=== PATIENT | male | born 1970 | race Caucasian/White ===

== ENCOUNTER 2016-08-20 02:47 | Emergency (ER) | payer MEDICAID ==
[~2016-08-20] VITALS: Ht 188 cm; Wt 111.9 kg
[~2016-08-20 02:47] MED LIST: AMOX125S10 PO; DIAZ2TAB3 PO; FLUT16SP2 NS; HYDR-3240 PO; TOPI25CA5 PO
[2016-08-20] MEDS ORDERED: ONDANSETRON ODT 4 MG ONE (03:29)
[2016-08-20] MEDS ORDERED: OXYcodone/APAP 5/325MG TABLET ONE (03:29)
[2016-08-20] MEDS ORDERED: LIDOCAINE 1%, 20ML ONE (03:29)
[2016-08-20] MEDS ORDERED: OXYcodone/APAP 5/325MG TABLET PO ONE (03:30)
[2016-08-20] MEDS ORDERED: ONDANSETRON ODT 4 MG PO ONE (03:30)
[2016-08-20] MEDS ORDERED: LIDOCAINE 1%, 20ML INFIL ONE (03:30)
[2016-08-20 04:35] VITALS: BP 144/88
== END 2016-08-20 04:37 | disposition home or self-care (01) ==
LOC: ED 03:12
DX: S30.860A Insect bite (nonvenomous) of lower back and pelvis, initial encounter (principal); L03.317 Cellulitis of buttock; W57.XXXA Bitten or stung by nonvenomous insect and other nonvenomous arthropods, initial encounter; Y93.89 Activity, other specified; Y99.8 Other external cause status; Y92.89 Other specified places as the place of occurrence of the external cause
CPT/HCPCS: 10060; 99283; Q0162

== ENCOUNTER 2016-12-24 23:13 | Emergency (ER) | payer MEDICAID ==
[~2016-12-24] VITALS: Ht 188 cm; Wt 107.5 kg
[2016-12-24] MEDS ORDERED: SODIUM CHLORIDE 0.9% 1,000 ML IV ONE (23:57)
[2016-12-25] MEDS ORDERED: LORazepam 2 MG/ML, 1ML IVPush ONE
[2016-12-25] MEDS ORDERED: SODIUM CHLORIDE FLUSH 10ML SYR IVF ONE
[2016-12-25] MEDS ORDERED: LORazepam 2 MG/ML, 1ML ONE (00:05)
[2016-12-25 00:16] LABS: HEMATOCRIT 51.7 % (39.2-51.8); WHITE BLOOD COUNT 11.1 x10^3/uL (3.4-10)
[2016-12-25 00:19] LABS: BLOOD UREA NITROGEN 21 mg/dL (7-18)
[2016-12-25 00:26] LABS: IS PT STATUS REG ER OR PRE ER? YES
[2016-12-25 01:18] VITALS: BP 112/67
== END 2016-12-25 01:30 | disposition home or self-care (01) ==
LOC: ED 23:45
DX: S29.012A Strain of muscle and tendon of back wall of thorax, initial encounter (principal); R07.2 Precordial pain; X58.XXXA Exposure to other specified factors, initial encounter; Y93.89 Activity, other specified; Y99.8 Other external cause status; Y92.89 Other specified places as the place of occurrence of the external cause
CPT/HCPCS: 36415; 71020; 80048; 82040; 84484; 85025; 85379; 93005; 96361; 96374; 99285; J2060; J7030

== ENCOUNTER 2016-12-28 22:31 | Emergency (ER) | payer MEDICAID ==
[~2016-12-28] VITALS: Ht 188 cm; Wt 109.2 kg
[2016-12-28] MEDS ORDERED: ALBUTEROL/IPRATROPIUM 2.5MG/0.5MG, 3 ML NPPB ONE (23:00)
[2016-12-28] MEDS ORDERED: ALBUTEROL/IPRATROPIUM 2.5MG/0.5MG, 3 ML ONE (23:08)
[2016-12-29] MEDS ORDERED: LORazepam 1MG TABLET PO ONE
[2016-12-29] MEDS ORDERED: LORazepam 1MG TABLET ONE (00:23)
[2016-12-29 00:27] VITALS: BP 115/69
== END 2016-12-29 00:36 | disposition home or self-care (01) ==
LOC: ED 23:59
DX: J44.1 Chronic obstructive pulmonary disease with (acute) exacerbation (principal); F17.200 Nicotine dependence, unspecified, uncomplicated
CPT/HCPCS: 71020; 94640; 99284; J7512; J7620

== ENCOUNTER 2017-01-20 18:12 | Emergency (ER) | payer MEDICAID ==
[~2017-01-20] VITALS: Ht 188 cm; Wt 112.2 kg
[2017-01-20] MEDS ORDERED: LIDOCAINE 1%, 20ML SQ ONE (18:30)
[2017-01-20 19:46] VITALS: BP 131/84
== END 2017-01-20 19:50 | disposition home or self-care (01) ==
LOC: ED 19:30
DX: L03.113 Cellulitis of right upper limb (principal); L02.411 Cutaneous abscess of right axilla; J44.9 Chronic obstructive pulmonary disease, unspecified
CPT/HCPCS: 10060

== ENCOUNTER 2019-05-07 21:58 | Emergency (ER) | payer MEDICAID, OTHER ==
[~2019-05-07] VITALS: Ht 188 cm; Wt 133.2 kg
[2019-05-07] MEDS ORDERED: ASPIRIN 81 MG TABLET CHEW ONE (22:17)
--- NOTE | 2019-05-07 22:18 | NUR ---
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
[2019-05-07] MEDS ORDERED: ASPIRIN 81 MG TABLET CHEW PO ONE (22:30)
[2019-05-07] MEDS ORDERED: SODIUM CHLORIDE FLUSH 10ML SYR IVF ONE (22:30)
--- NOTE | 2019-05-07 23:08 | NUR ---
pt to room from lobby
[2019-05-07] MEDS ORDERED: methylPREDNISolone SOD SUCC 125 MG/2 ML IVPush STA (23:18)
[2019-05-07 23:29] LABS: BASOPHILS # (AUTO) 0.01 x10^3/uL (0-0.1); BASOPHILS % (AUTO) 0 % (0-1); EOSINOPHILS # (AUTO) 0.16 x10^3/uL (0-0.4); EOSINOPHILS % (AUTO) 2 % (1-7); LYMPHOCYTES # (AUTO) 2.34 x10^3/uL (1-3.4); LYMPHOCYTES % (AUTO) 29 % (22-44); MD NO; MEAN CORPUSCULAR HEMOGLOBIN 29.4 pg (27.5-34.5); MEAN CORPUSCULAR HGB CONC 32.5 g/dL (33.2-36.2); MEAN CORPUSCULAR VOLUME 90.5 fL (81-97); MEAN PLATELET VOLUME 7.4 fL (7.4-10.4); MONOCYTES # (AUTO) 0.87 x10^3/uL (0.2-0.8); MONOCYTES % (AUTO) 11 % (2-9); NEUTROPHILS # (AUTO) 4.57 x10^3/uL (1.8-6.8); NEUTROPHILS % (AUTO) 58 % (42-75); PLATELET COUNT 207 x10^3/uL (130-400)
[2019-05-07] MEDS: ALBUTEROL/IPRATROPIUM 2.5MG/0.5MG, 3 ML NPPB SCH ×2 (23:40→23:43)
[2019-05-07] MEDS ORDERED: methylPREDNISolone SOD SUCC 125 MG/2 ML ONE (23:40)
[2019-05-07 23:41] LABS: ALBUMIN 3.2 g/dL (3.4-5.0); ANION GAP 4 mmol/L (5-15); CALCIUM 8.9 mg/dL (8.5-10.1); CHLORIDE 111 mmol/L (98-107)
--- NOTE | 2019-05-07 23:41 | NUR ---
CTA PENDING CREATINE.
[2019-05-07 23:46] LABS: ALANINE AMINOTRANSFERASE 44 U/L (12-78); ALKALINE PHOSPHATASE 107 U/L (45-117); BILIRUBIN,TOTAL 0.5 mg/dL (0.2-1.0); CREATININE 1.14 mg/dL (0.7-1.3); TOTAL PROTEIN 7.6 g/dL (6.4-8.2); TROPONIN I < 0.015 ng/mL (0.000-0.045)
--- NOTE | 2019-05-08 00:10 | NUR ---
PATIENT TO CT SCAN.
--- NOTE | 2019-05-08 00:34 | NUR ---
RT FOREARM IV FAILED, STARTED 20G IN LEFT PROXIMAL FOREARM. SENT PT BACK TO ER WITH IV.
[2019-05-08] MEDS ORDERED: OMNIPAQUE 350 MG/ML, 100ML BOTTLE ONE (00:36)
--- NOTE | 2019-05-08 00:38 | NUR ---
BACK FROM CT SCAN. AWAITING RESULT. NON STOP COUGH NOTED.
--- NOTE | 2019-05-08 01:00 | NUR ---
ERP AT BEDSIDE FOR RE-EVALUATION.
[2019-05-08 01:34] VITALS: BP 145/89
== END 2019-05-08 01:35 | disposition home or self-care (01) ==
LOC: ED 05-08 01:19
DX: J44.0 Chronic obstructive pulmonary disease with (acute) lower respiratory infection (principal); J20.9 Acute bronchitis, unspecified; F17.210 Nicotine dependence, cigarettes, uncomplicated
CPT/HCPCS: 36415; 71275; 80053; 83880; 84484; 85025; 93005; 94640; 96374; 99284; J2930; J7620; Q9967

== ENCOUNTER 2020-07-05 06:32 | Emergency (ER) | payer MEDICAID, OTHER ==
[~2020-07-05] VITALS: Ht 185.4 cm; Wt 118.2 kg
[~2020-07-05 06:32] MED LIST changes: +HYDR-1067 PO; -HYDR-3240 PO
[2020-07-05 06:38] VITALS: BP 158/101
[2020-07-05] MEDS ORDERED: ALBUTEROL SULFATE 2.5 MG/3 ML ONE (06:56)
[2020-07-05] MEDS ORDERED: ALBUTEROL SULFATE 2.5 MG/3 ML NPPB ONE (07:00)
--- NOTE | 2020-07-05 07:04 | NUR ---
PT HAS CO COUGH FROM SMOKING AND CONGESTION. PT NOT IN RESP DISTRESS. XR COMPLETE, BREATHING TREATMENT IN PROCESS.
--- NOTE | 2020-07-05 07:27 | NUR ---
Patient given discharge instructions and they have confirmed that they understand the instructions. Patient ambulatory with steady gait.
== END 2020-07-05 07:28 | disposition home or self-care (01) ==
LOC: ED 07:20
DX: J20.9 Acute bronchitis, unspecified (principal); R00.0 Tachycardia, unspecified; F17.200 Nicotine dependence, unspecified, uncomplicated; Z86.711 Personal history of pulmonary embolism
CPT/HCPCS: 71045; 93005; 94640; 99283; J7613

== ENCOUNTER 2020-07-16 10:25 | Inpatient (IN) | payer OTHER ==
[~2020-07-16] VITALS: Ht 188 cm; Wt 114.2 kg
--- NOTE | 2020-07-16 10:25 | NUR ---
INITIAL PT CONTACT. PT PRESENTS TO ED VIA EMS C/O WORSENING SOB AND COUGH, X3 WEEKS. RECENT DX OF BRONCHITIS, RX PREDISONE "I AM TAKING IT HOW I AM SUPPOSED TO" . PT ALSO C/O INCREASED "SWELLING OF MY FEET AND ANKLES AND HARD TIME BREATHING WHEN I AM SLEEPING OR TRYING TO SLEEP". 1 INCH NITRO PASTE GIVEN EN ROUTE WITH EMS. PER EMS PT WAS 88% ON ROOM AIR, PLACED ON 4L O2 VIA NASAL CANNULA, PT NOW 99%. PT DENIES ANY CHEST PAIN, N/V. PT SITTING UPRIGHT ON GURNEY, VSS. PT PLACED ON CONTINUOUS PULSE OX AND CARDIAC MONITORING. CALL LIGHT AND PERSONAL BELONGINGS WITHIN REACH. AWAITING ERP.
--- NOTE | 2020-07-16 10:42 | NUR ---
ERP AT BEDSIDE
[2020-07-16] MEDS ORDERED: ASPIRIN 81 MG TABLET CHEW ONE (11:10)
[2020-07-16] MEDS ORDERED: SODIUM CHLORIDE FLUSH 10ML SYR IVF ONE (11:30)
[2020-07-16] MEDS ORDERED: ASPIRIN 81 MG TABLET CHEW PO ONE (11:30)
[2020-07-16 11:33] LABS: ALBUMIN 3.3 g/dL (3.4-5.0); ANION GAP 7 mmol/L (5-15); CALCIUM 8.8 mg/dL (8.5-10.1); CHLORIDE 107 mmol/L (98-107); CREATININE 0.87 mg/dL (0.7-1.3)
[2020-07-16 11:37] LABS: TROPONIN I 0.028 ng/mL (0.000-0.045)
[2020-07-16 11:45] LABS: BASOPHILS % (AUTO) 1 % (0-1); EOSINOPHILS % (AUTO) 1 % (1-7); LYMPHOCYTES % (AUTO) 22 % (22-44); MEAN PLATELET VOLUME 8.7 fL (7.4-10.4); MONOCYTES % (AUTO) 7 % (2-9); NEUTROPHILS % (AUTO) 70 % (42-75); PLATELET COUNT 148 x10^3/uL (130-400); RED BLOOD COUNT 5.66 x10^6/uL (4.38-5.82); RED CELL DISTRIBUTION WIDTH 14.2 % (9.4-14.8)
[2020-07-16 11:50] LABS: MD NO
[2020-07-16] MEDS ORDERED: OMNIPAQUE 350 MG/ML, 100ML BOTTLE ONE (12:09)
[2020-07-16] MEDS ORDERED: ALBUTEROL/IPRATROPIUM 2.5MG/0.5MG, 3 ML ONE (13:12)
--- NOTE | 2020-07-16 13:20 | NUR ---
PT STATES "I FEEL A LITTLE BETTER AFTER THAT BREATHING TX, MADE ME BE ABLE TO TAKE A DEEPER BREATH" PT DENIES ANY ADDITIONAL NEEDS AT THIS TIME.
--- NOTE | 2020-07-16 13:27 | NUR ---
PT PROVIDED LUNCH TRAY. OK PER ERP. PT DENIES ANY ADDITIONAL NEEDS AT THIS TIME. CALL LIGHT AND BELONGINGS WITHIN REACH.
[2020-07-16] MEDS ORDERED: ALBUTEROL/IPRATROPIUM 2.5MG/0.5MG, 3 ML NPPB ONE (13:30)
--- NOTE | 2020-07-16 13:46 | NUR ---
REPORT TO TINA THURMAN
[2020-07-16] MEDS ORDERED: PROMETHAZINE/COD. 10MG/6.25MG/5 ML ORAL SOL PO PRN (14:00)
[2020-07-16] MEDS ORDERED: ONDANSETRON ODT 4 MG PO PRN (14:00)
[2020-07-16] MEDS: ENOXAPARIN 40 MG/0.4 ML SQ SCH (15:38)
[2020-07-16 15:44] VITALS: BP 141/97
[2020-07-16] MEDS: AMPICILLIN/SULBACTAM 3 GM in SODIUM CHLORIDE 0.9% 100 ML IV SCH ×2 (17:12→23:07)
[2020-07-16] MEDS: BENZONATATE 100 MG CAPSULE PO SCH ×2 (17:12→20:52)
[2020-07-16 17:23] VITALS: BP 141/97
[2020-07-16] MEDS: NICOTINE 21 MG/24 HR PATCH.TD24 TD SCH (18:28)
[2020-07-16] MEDS: ACETAMINOPHEN 325 MG TABLET PO PRN (18:28)
[2020-07-16 18:34] VITALS: BP 126/87
[2020-07-16 18:41] LABS: TROPONIN I 0.025 ng/mL (0.000-0.045)
[2020-07-16] MEDS: GUAIFENESIN ER 600 MG TABLET PO SCH (20:52)
[2020-07-16] MEDS: DOXYCYCLINE 100MG TABLET PO SCH (20:53)
[2020-07-17 00:54] VITALS: BP 119/83
[2020-07-17 01:27] LABS: TROPONIN I 0.018 ng/mL (0.000-0.045)
[2020-07-17] MEDS: KETOROLAC 30 MG/1 ML IV PRN ×2 (03:13→03:14)
[2020-07-17] MEDS: AMPICILLIN/SULBACTAM 3 GM in SODIUM CHLORIDE 0.9% 100 ML IV SCH ×4 (05:10→23:36)
[2020-07-17] MEDS: DOXYCYCLINE 100MG TABLET PO SCH ×2 (07:48→20:16)
[2020-07-17] MEDS: BENZONATATE 100 MG CAPSULE PO SCH ×3 (07:49→20:17)
[2020-07-17] MEDS: GUAIFENESIN ER 600 MG TABLET PO SCH ×2 (07:49→20:17)
[2020-07-17 07:56] VITALS: BP 131/93
[2020-07-17] MEDS ORDERED: NICOTINE 21 MG/24 HR PATCH.TD24 TD SCH (09:00)
[2020-07-17 13:21] VITALS: BP 139/101
[2020-07-17] MEDS: ENOXAPARIN 40 MG/0.4 ML SQ SCH (13:59)
[2020-07-17] MEDS: ACETAMINOPHEN 325 MG TABLET PO PRN (13:59)
[2020-07-17] MEDS ORDERED: SODIUM CHLORIDE 0.9% 1,000 ML IV ONE (16:00)
[2020-07-17] MEDS: NICOTINE 21 MG/24 HR PATCH.TD24 TD SCH (17:59)
[2020-07-17] MEDS ORDERED: FUROSEMIDE 40 MG/4 ML IV ONE (18:00)
[2020-07-17 20:08] VITALS: BP 140/97
[2020-07-17] MEDS: ZOLPIDEM 5MG TABLET PO PRN (20:17)
[2020-07-18 00:39] VITALS: BP 143/99
[2020-07-18] MEDS: KETOROLAC 30 MG/1 ML IV PRN ×2 (02:01→09:58)
[2020-07-18] MEDS: AMPICILLIN/SULBACTAM 3 GM in SODIUM CHLORIDE 0.9% 100 ML IV SCH ×2 (04:27→11:12)
[2020-07-18 08:16] VITALS: BP 147/120
[2020-07-18 08:21] VITALS: BP 140/111
[2020-07-18] MEDS ORDERED: MELATONIN 3 MG TABLET PO PRN (08:30)
[2020-07-18] MEDS ORDERED: CARVEDILOL 3.125 MG TABLET PO SCH (08:30)
[2020-07-18] MEDS ORDERED: LISINOPRIL 10 MG TABLET PO SCH (09:00)
[2020-07-18 09:48] LABS: ANION GAP 4 mmol/L (5-15); CALCIUM 9.2 mg/dL (8.5-10.1); CHLORIDE 105 mmol/L (98-107); CREATININE 0.79 mg/dL (0.7-1.3)
[2020-07-18] MEDS: GUAIFENESIN ER 600 MG TABLET PO SCH ×2 (09:57→20:09)
[2020-07-18] MEDS: CARVEDILOL 3.125 MG TABLET PO SCH ×3 (09:58→20:09)
[2020-07-18] MEDS: FUROSEMIDE 20 MG/2 ML IV SCH ×2 (09:58→17:01)
[2020-07-18] MEDS: BENZONATATE 100 MG CAPSULE PO SCH ×3 (09:58→20:09)
[2020-07-18] MEDS: DOXYCYCLINE 100MG TABLET PO SCH (09:58)
[2020-07-18] MEDS: SPIRONOLACTONE 25 MG TABLET PO SCH (09:59)
[2020-07-18] MEDS: LISINOPRIL 10 MG TABLET PO SCH ×2 (09:59→20:08)
[2020-07-18] MEDS: NICOTINE 21 MG/24 HR PATCH.TD24 TD SCH (10:00)
[2020-07-18] MEDS ORDERED: MIDAZOLAM 1 MG/ML, 5ML ONE (12:48)
[2020-07-18] MEDS ORDERED: TICAGRELOR 90 MG TABLET ONE (12:48)
[2020-07-18] MEDS ORDERED: FENTANYL PF 100 MCG/2ML ONE (12:48)
[2020-07-18] MEDS ORDERED: VERAPAMIL 2.5 MG/ML, 2ML ONE (12:48)
[2020-07-18] MEDS ORDERED: LIDOCAINE 2%, 20ML ONE (12:49)
[2020-07-18] MEDS ORDERED: BIVALIRUDIN 250 MG ONE ×2 (12:49→14:05)
[2020-07-18] MEDS ORDERED: HEPARIN 1,000 UNITS/ML, 10ML ONE (12:49)
[2020-07-18 14:00] VITALS: BP 132/88
[2020-07-18] MEDS ORDERED: ASPIRIN 325 MG TABLET EC ONE (14:12)
[2020-07-18] MEDS ORDERED: BIVALIRUDIN 250 MG in SODIUM CHLORIDE 0.9% 50 ML IV SCH (14:30)
[2020-07-18] MEDS: SODIUM CHLORIDE 0.9% 1,000 ML IV SCH ×2 (14:30→22:30)
[2020-07-18] MEDS: ASPIRIN 81 MG TABLET CHEW PO SCH (17:01)
[2020-07-18] MEDS: ATORVASTATIN 80 MG TABLET PO SCH (20:09)
[2020-07-18] MEDS: ZOLPIDEM 5MG TABLET PO PRN (20:09)
[2020-07-18 20:52] VITALS: BP 112/75
[2020-07-18] MEDS ORDERED: TICAGRELOR 90 MG TABLET PO SCH (21:00)
[2020-07-19 01:12] VITALS: BP 134/98
[2020-07-19] MEDS ORDERED: LORazepam 2 MG/ML, 1ML ONE (02:45)
[2020-07-19] MEDS ORDERED: LORazepam 2 MG/ML, 1ML IVPush ONE (03:00)
[2020-07-19 05:10] LABS: BASOPHILS % (AUTO) 1 % (0-1); EOSINOPHILS % (AUTO) 1 % (1-7); LYMPHOCYTES % (AUTO) 15 % (22-44); MEAN CORPUSCULAR HEMOGLOBIN 30.7 pg (27.5-34.5); MEAN CORPUSCULAR HGB CONC 33.8 g/dL (33.2-36.2); MONOCYTES % (AUTO) 5 % (2-9); NEUTROPHILS % (AUTO) 78 % (42-75); PLATELET COUNT 167 x10^3/uL (130-400); RED BLOOD COUNT 5.61 x10^6/uL (4.38-5.82); RED CELL DISTRIBUTION WIDTH 14.4 % (9.4-14.8)
[2020-07-19 05:12] LABS: MD NO
[2020-07-19 05:22] LABS: ANION GAP 4 mmol/L (5-15); CALCIUM 8.5 mg/dL (8.5-10.1); CHLORIDE 104 mmol/L (98-107)
[2020-07-19 05:23] LABS: CREATININE 0.92 mg/dL (0.7-1.3)
[2020-07-19] MEDS: CARVEDILOL 3.125 MG TABLET PO SCH (06:09)
[2020-07-19] MEDS: ASPIRIN 81 MG TABLET CHEW PO SCH (06:09)
[2020-07-19] MEDS: SODIUM CHLORIDE 0.9% 1,000 ML IV SCH (06:14)
[2020-07-19 06:51] VITALS: BP 127/92
[2020-07-19 08:57] VITALS: BP 142/102
[2020-07-19] MEDS: CLOPIDOGREL 75 MG TABLET PO SCH (09:00)
[2020-07-19] MEDS: SPIRONOLACTONE 25 MG TABLET PO SCH (09:00)
[2020-07-19] MEDS: GUAIFENESIN ER 600 MG TABLET PO SCH ×2 (09:01→20:45)
[2020-07-19] MEDS: BENZONATATE 100 MG CAPSULE PO SCH ×3 (09:01→20:45)
[2020-07-19] MEDS: LISINOPRIL 10 MG TABLET PO SCH ×2 (09:01→20:45)
[2020-07-19] MEDS: FUROSEMIDE 20 MG/2 ML IV SCH ×2 (09:01→17:12)
[2020-07-19] MEDS: NICOTINE 21 MG/24 HR PATCH.TD24 TD SCH (09:02)
[2020-07-19] MEDS: CARVEDILOL 12.5 MG TABLET PO SCH ×2 (09:30→20:46)
[2020-07-19 12:46] VITALS: BP 134/101
[2020-07-19 17:09] VITALS: BP 129/79
[2020-07-19 20:00] VITALS: BP 123/85
[2020-07-19] MEDS: ATORVASTATIN 80 MG TABLET PO SCH (20:45)
[2020-07-20 00:50] VITALS: BP 109/73
[2020-07-20 04:49] LABS: BASOPHILS % (AUTO) 0 % (0-1); EOSINOPHILS % (AUTO) 1 % (1-7); LYMPHOCYTES % (AUTO) 16 % (22-44); MEAN CORPUSCULAR HEMOGLOBIN 30.8 pg (27.5-34.5); MEAN PLATELET VOLUME 9.2 fL (7.4-10.4); MONOCYTES % (AUTO) 6 % (2-9); NEUTROPHILS % (AUTO) 77 % (42-75); PLATELET COUNT 170 x10^3/uL (130-400); RED BLOOD COUNT 5.94 x10^6/uL (4.38-5.82); RED CELL DISTRIBUTION WIDTH 14.3 % (9.4-14.8)
[2020-07-20 04:53] LABS: MD NO
[2020-07-20 04:56] LABS: ANION GAP 5 mmol/L (5-15); CALCIUM 8.5 mg/dL (8.5-10.1); CHLORIDE 104 mmol/L (98-107)
[2020-07-20] MEDS: ASPIRIN 81 MG TABLET CHEW PO SCH (06:08)
[2020-07-20 07:39] VITALS: BP 127/90
[2020-07-20] MEDS: FUROSEMIDE 20 MG/2 ML IV SCH (07:47)
[2020-07-20] MEDS: BENZONATATE 100 MG CAPSULE PO SCH ×3 (07:48→20:50)
[2020-07-20] MEDS: CLOPIDOGREL 75 MG TABLET PO SCH (07:48)
[2020-07-20] MEDS: GUAIFENESIN ER 600 MG TABLET PO SCH (07:48)
[2020-07-20] MEDS: SPIRONOLACTONE 25 MG TABLET PO SCH (07:48)
[2020-07-20] MEDS: CARVEDILOL 12.5 MG TABLET PO SCH ×2 (07:49→20:50)
[2020-07-20] MEDS: NICOTINE 21 MG/24 HR PATCH.TD24 TD SCH (07:51)
[2020-07-20] MEDS: LISINOPRIL 10 MG TABLET PO SCH ×2 (07:51→20:51)
[2020-07-20] MEDS ORDERED: ISOSORBIDE DINITRATE 10 MG TABLET PO SCH (09:30)
[2020-07-20 13:30] VITALS: BP 113/77
[2020-07-20] MEDS: ISOSORBIDE MONONITRATE ER 30 MG TABLET PO SCH (13:35)
[2020-07-20] MEDS: FUROSEMIDE 40 MG TABLET PO SCH (16:22)
[2020-07-20 18:53] VITALS: BP 117/74
[2020-07-20] MEDS: ATORVASTATIN 80 MG TABLET PO SCH (20:51)
[2020-07-20] MEDS: ZOLPIDEM 5MG TABLET PO PRN (20:58)
[2020-07-21 01:36] VITALS: BP 94/59
[2020-07-21 04:45] LABS: BASOPHILS % (AUTO) 1 % (0-1); EOSINOPHILS % (AUTO) 1 % (1-7); LYMPHOCYTES % (AUTO) 27 % (22-44); MEAN CORPUSCULAR HEMOGLOBIN 30.7 pg (27.5-34.5); MEAN CORPUSCULAR HGB CONC 33.4 g/dL (33.2-36.2); MEAN PLATELET VOLUME 8.5 fL (7.4-10.4); MONOCYTES % (AUTO) 8 % (2-9); NEUTROPHILS % (AUTO) 63 % (42-75); PLATELET COUNT 162 x10^3/uL (130-400); RED BLOOD COUNT 6.14 x10^6/uL (4.38-5.82); RED CELL DISTRIBUTION WIDTH 14.5 % (9.4-14.8)
[2020-07-21 04:54] LABS: MD NO
[2020-07-21 04:58] LABS: ANION GAP 5 mmol/L (5-15); CALCIUM 8.8 mg/dL (8.5-10.1); CHLORIDE 104 mmol/L (98-107); CREATININE 1.02 mg/dL (0.7-1.3)
[2020-07-21] MEDS: ASPIRIN 81 MG TABLET CHEW PO SCH (05:08)
[2020-07-21 06:50] VITALS: BP 114/76
[2020-07-21] MEDS: LISINOPRIL 10 MG TABLET PO SCH (07:22)
[2020-07-21] MEDS: CLOPIDOGREL 75 MG TABLET PO SCH (07:22)
[2020-07-21] MEDS: CARVEDILOL 12.5 MG TABLET PO SCH (07:23)
[2020-07-21] MEDS: SPIRONOLACTONE 25 MG TABLET PO SCH (07:23)
[2020-07-21] MEDS: FUROSEMIDE 40 MG TABLET PO SCH (07:23)
[2020-07-21] MEDS: ISOSORBIDE MONONITRATE ER 30 MG TABLET PO SCH (07:23)
[2020-07-21] MEDS: BENZONATATE 100 MG CAPSULE PO SCH (07:23)
[2020-07-21] MEDS: NICOTINE 21 MG/24 HR PATCH.TD24 TD SCH (07:24)
[2020-07-21] MEDS ORDERED: ASPI-963 PO (10:40)
[2020-07-21] MEDS ORDERED: FURO40TA6 PO (10:40)
[2020-07-21] MEDS ORDERED: CARV12.52 PO (10:40)
[2020-07-21] MEDS ORDERED: SPIR25TA PO (10:40)
[2020-07-21] MEDS ORDERED: HYDR-826 PO (10:40)
[2020-07-21] MEDS ORDERED: NICO-587 TD (10:40)
[2020-07-21] MEDS ORDERED: ISOS30TA8 PO (10:40)
[2020-07-21] MEDS ORDERED: ATOR-2 PO (10:40)
[2020-07-21] MEDS ORDERED: LISI-170 PO (10:40)
[2020-07-21] MEDS ORDERED: CLOP75TA PO (10:40)
== END 2020-07-21 13:30 | disposition home or self-care (01) | DRG 246 ==
LOC: ED 10:49 → EDIP 13:05 → SUATTDRO 13:29 → 4EST 14:55 → 5SO 07-18 14:17 → DCLOUNGE 07-21 13:19
PROVIDERS: ADMIT Internal Medicine; ATTEND Family Medicine
PROC: 027034Z Dilation of Coronary Artery, One Artery with Drug-eluting Intraluminal Device, Percutaneous Approach (ICD-10-PCS; principal; 2020-07-18)
PROC: 4A023N7 Measurement of Cardiac Sampling and Pressure, Left Heart, Percutaneous Approach (ICD-10-PCS; 2020-07-18)
PROC: B2111ZZ Fluoroscopy of Multiple Coronary Arteries using Low Osmolar Contrast (ICD-10-PCS; 2020-07-18)
PROC: B2151ZZ Fluoroscopy of Left Heart using Low Osmolar Contrast (ICD-10-PCS; 2020-07-18)
DX: I24.9 Acute ischemic heart disease, unspecified (principal); J96.01 Acute respiratory failure with hypoxia; I50.23 Acute on chronic systolic (congestive) heart failure; I42.0 Dilated cardiomyopathy; I11.0 Hypertensive heart disease with heart failure; Z20.822 Contact with and (suspected) exposure to COVID-19; F17.210 Nicotine dependence, cigarettes, uncomplicated; E66.9 Obesity, unspecified; I25.10 Atherosclerotic heart disease of native coronary artery without angina pectoris; I08.1 Rheumatic disorders of both mitral and tricuspid valves; I25.5 Ischemic cardiomyopathy; E78.5 Hyperlipidemia, unspecified; I27.81 Cor pulmonale (chronic); F41.9 Anxiety disorder, unspecified; J44.9 Chronic obstructive pulmonary disease, unspecified; Z83.3 Family history of diabetes mellitus; Z82.49 Family history of ischemic heart disease and other diseases of the circulatory system; Z68.35 Body mass index [BMI] 35.0-35.9, adult; Z79.899 Other long term (current) drug therapy
CPT/HCPCS: 36415; 74018; 84145; 93458; 99285; C8929; C9600; J3490; 71045; 71275; 80048; 82040; 83036; 83880; 84484; 85025; 93005; 94640; 99156; 99157; C1769; C1894; G0378; J0295; J0583; J1644; J1650; J1885; J1940; J2250; J3010; J7509; Q9957; Q9967; C1725; C1874; C1887; J2060; J7030; Q0177; U0003

== ENCOUNTER 2020-10-31 13:04 | Outpatient (CLI) | payer OTHER ==
[~2020-10-31 13:04] MED LIST changes: +ASPI-963 PO; +ATOR-2 PO; +CARV12.52 PO; +CLOP75TA PO; +FURO40TA6 PO; -HYDR-1067 PO; +HYDR-2214 PO; +HYDR-826 PO; +ISOS30TA8 PO; +LISI-170 PO; +NICO-587 TD; +SPIR25TA PO
== END 2020-10-31 23:59 | disposition home or self-care (01) ==
LOC: CFH 13:04
PROVIDERS: ATTEND Physician Assistant Medical
DX: I08.1 Rheumatic disorders of both mitral and tricuspid valves (principal); I25.9 Chronic ischemic heart disease, unspecified
CPT/HCPCS: 93306

== ENCOUNTER 2020-11-24 11:06 | Observation (INO) | payer MEDICAID ==
[~2020-11-24] VITALS: Ht 188 cm; Wt 109.0 kg
[2020-11-24] MEDS ORDERED: PLEASE ENTER HEIGHT AND WEIGHT MC SCH (12:00)
[2020-11-24] MEDS ORDERED: CEFAZOLIN PMX 1GM/50ML 50 ML IVPB ONE (12:00)
[2020-11-24] MEDS ORDERED: SODIUM CHLORIDE 0.9% 1,000 ML IV SCH (12:00)
[2020-11-24] MEDS ORDERED: SACU1TAB7 PO (12:04)
[2020-11-24] MEDS ORDERED: ESCI10TA97 PO (12:04)
[2020-11-24] MEDS ORDERED: TRAZ-175 PO (12:04)
[2020-11-24 12:05] VITALS: BP 89/59
[2020-11-24 12:19] LABS: BASOPHILS % (AUTO) 0 % (0-1); EOSINOPHILS % (AUTO) 3 % (1-7); LYMPHOCYTES % (AUTO) 33 % (22-44); MEAN CORPUSCULAR HEMOGLOBIN 30.8 pg (27.5-34.5); MEAN CORPUSCULAR HGB CONC 34.3 g/dL (33.2-36.2); MEAN PLATELET VOLUME 7.8 fL (7.4-10.4); MONOCYTES % (AUTO) 9 % (2-9); NEUTROPHILS % (AUTO) 55 % (42-75); PLATELET COUNT 146 x10^3/uL (130-400); RED BLOOD COUNT 5.79 x10^6/uL (4.38-5.82); RED CELL DISTRIBUTION WIDTH 13.9 % (9.4-14.8)
[2020-11-24] MEDS ORDERED: FENTANYL PF 100 MCG/2ML ONE ×2 (12:22→13:42)
[2020-11-24] MEDS ORDERED: MIDAZOLAM 1 MG/ML, 5ML ONE (12:22)
[2020-11-24] MEDS ORDERED: LIDOCAINE 2%, 20ML ONE (12:22)
[2020-11-24] MEDS ORDERED: CEFAZOLIN 1,000 MG ONE ×2 (12:22→12:32)
[2020-11-24] MEDS ORDERED: CEFAZOLIN PMX 1GM/50ML 50 ML ONE (12:23)
[2020-11-24 12:29] LABS: INTERNATIONAL NORMALIZED RATIO 0.95 (0.93-1.1); PROTHROMBIN TIME 10.2 Seconds (9.6-11.5)
[2020-11-24 12:32] LABS: ANION GAP 4 mmol/L (5-15); CALCIUM 9.1 mg/dL (8.5-10.1); CHLORIDE 107 mmol/L (98-107); CREATININE 0.98 mg/dL (0.7-1.3)
[2020-11-24] MEDS ORDERED: LIDOCAINE 1%, 20ML ONE (13:27)
[2020-11-24] MEDS ORDERED: HOLD MEDICATION MC PRN (14:30)
[2020-11-24] MEDS ORDERED: ACETAMINOPHEN 325 MG TABLET PO PRN (14:30)
[2020-11-24] MEDS ORDERED: HYDROcodone/APAP 5/325 TABLET PO PRN (14:30)
[2020-11-24 14:50] VITALS: BP 82/59
[2020-11-24] MEDS ORDERED: PHARMACY INSTRUCTION MC PRN (15:00)
[2020-11-24 19:09] VITALS: BP 93/57
[2020-11-24] MEDS: SODIUM CHLORIDE FLUSH 10ML SYR IVF SCH (20:55)
[2020-11-24] MEDS ORDERED: ATORVASTATIN 80 MG TABLET PO SCH (21:00)
[2020-11-24] MEDS ORDERED: ZOLPIDEM 5MG TABLET PO PRN (21:00)
[2020-11-24] MEDS: CEFAZOLIN PMX 1GM/50ML 50 ML IV SCH (22:16)
[2020-11-25 00:42] VITALS: BP 97/58
[2020-11-25] MEDS: CEFAZOLIN PMX 1GM/50ML 50 ML IV SCH (06:02)
[2020-11-25 07:45] VITALS: BP 130/83
[2020-11-25] MEDS ORDERED: ESCITALOPRAM 10MG TABLET PO SCH (09:00)
[2020-11-25] MEDS: SODIUM CHLORIDE FLUSH 10ML SYR IVF SCH (09:21)
== END 2020-11-25 12:59 | disposition home or self-care (01) ==
LOC: CACL 11:06 → 5SO 14:39 → CACL 22:30 → 5SO 22:30
PROVIDERS: ADMIT Internal Medicine Clinical Cardiac Electrophysiology; ATTEND Internal Medicine Clinical Cardiac Electrophysiology
DX: I42.9 Cardiomyopathy, unspecified (principal); I11.0 Hypertensive heart disease with heart failure; I50.20 Unspecified systolic (congestive) heart failure; I25.9 Chronic ischemic heart disease, unspecified; I25.10 Atherosclerotic heart disease of native coronary artery without angina pectoris; F41.8 Other specified anxiety disorders; Z87.891 Personal history of nicotine dependence; Z79.82 Long term (current) use of aspirin; Z79.899 Other long term (current) drug therapy; Z95.810 Presence of automatic (implantable) cardiac defibrillator; Z45.02 Encounter for adjustment and management of automatic implantable cardiac defibrillator
CPT/HCPCS: 33249; 36415; 71045; 71046; 80048; 85025; 85610; 93005; 96365; 96366; 99156; 99157; C1722; C1892; C1895; G0378; J0690; J2250; J3010; J3490